=== PATIENT | male | born 1980 | race Two or more races ===

== ENCOUNTER 2022-03-18 09:30 | Emergency (ER) | payer MEDICAID ==
[2022-03-18] MEDS ORDERED: MUCINEX D ER 61 EACH PO (10:01)
[2022-03-18] MEDS ORDERED: VIBRAMYCIN100 MG PO (10:01)
== END 2022-03-18 10:14 | disposition home or self-care (01) ==
LOC: FER 09:30
DX: J32.9 Chronic sinusitis, unspecified (principal); R43.2 Parageusia; Z28.310 Unvaccinated for COVID-19
CPT/HCPCS: 99282